=== PATIENT | female | born 1980 | race Caucasian/White ===

== ENCOUNTER 2017-11-30 12:08 | Emergency (ER) | payer OTHER ==
[~2017-11-30] VITALS: Ht 165.1 cm; Wt 81.7 kg
[2017-11-30 12:24] VITALS: BP 113/70
[2017-11-30] MEDS ORDERED: LEXAPRO 10 MG T10 M2 PO (12:29)
[2017-11-30] MEDS ORDERED: ULTRAM 50MG TAB50 MG PO (13:12)
[2017-11-30] MEDS ORDERED: NAPROSYN500 MG PO (13:12)
== END 2017-11-30 13:48 | disposition home or self-care (01) ==
LOC: ER 12:08
DX: M75.101 Unspecified rotator cuff tear or rupture of right shoulder, not specified as traumatic (principal)